=== PATIENT | female | born 1950 | race Caucasian/White ===

== ENCOUNTER 2016-06-11 15:28 | Emergency (ER) | payer OTHER ==
[~2016-06-11] VITALS: Ht 157.5 cm; Wt 120.0 kg
[~2016-06-11 15:28] MED LIST: CHOL100043 PO; CLON0.1T14 PO; EPIN0.3P2 IJ; IBUP200C PO; PALI156D IM; TRAZ-115 PO; Therapeutic Multivit/Minerals PO; VENL75CA PO; VIT1TABL83 PO; VITA400C64 PO
[2016-06-11 15:31] VITALS: BP 159/86; PULSE 92; RESP 18; O2SAT 98
--- NOTE | 2016-06-11 15:37 | ED.REPORT ---
HPI-Extremity Problem Upper Date of Service Jun 11, 2016 ED Provider: Matty Kang MD Patient is a 65 year old female who presents to the ED with a laceration of her left index finger after she accidentally cut herself with a rotary operator prior to arrival. The patient was quilting and using the rotary operator to cut fabric, accidentally slicing her finger instead. The patient is unable to stop the bleeding on her own and brought in pieces of tissue that she cut off. She is not on any blood thinning medications. Patient does not remember when her last Tetanus immunization was. She is right hand dominant and she did not sustain any other injuries. Nursing Notes Stated Complaint: LEFT INDEX FINGER LACERATION Chief Complaint: Laceration Nursing Notes Reviewed: Yes Allergies: Coded Allergies: Pistachio (Verified Allergy, Severe, Hives, 06/11/16) hydrocodone bitartrate (Verified Allergy, Severe, 06/11/16) omeprazole (Verified Adverse Reaction, Severe, OK WITH PANTOPRAZOLE, ) losartan potassium (Verified Adverse Reaction, Intermediate, Dizziness, 04/17) Scheduled ([Therapeutic Multivit/Minerals]) 1 TABLET TABLET 1 TABLET PO DAILY Cholecalciferol (Vitamin D3) (Vitamin D) 1,000 Unit Tablet 2,000 UNIT PO DAILY Clonidine (Catapres) 0.1 Mg Tablet 0.3 MG PO DAILY Paliperidone Palmitate Inj (Invega Sustenna) 156 Mg/1 Ml Syringe 156 MG IM every month Trazodone (Trazodone) 50 Mg Tablet 100 MG PO HS Venlafaxine ER (Effexor XR) 75 Mg Capsule 225 MG PO DAILYWM Vit B Comp/C/FA/Iron/Vit E (Vitamin B Complex Tablet) 1 Each Tablet 1 EACH PO DAILY Vitamin E Mixed (Vitamin E) 400 Unit Capsule 400 UNIT PO DAILY Scheduled PRN Epinephrine (Epipen 2-Luis) 0.3 Mg/0.3 Ml Auto.injct 0.3 MG IJ PRN anaphylaxis Ibuprofen (Ibuprofen) 200 Mg Capsule 400 MG PO Q6 PRN PRN For Pain Oxycodone HCl/Acetaminophen 5-325 (Endocet 5-325) 1 Each Tablet 1 TABLET PO Q4H PRN PRN For Pain General Time Seen by MD: 15:36 Chief Complaint Finger injury left 2 Hx Obtained From: Patient Arrived By: Walk-in Onset Occurred: Just prior to arrival Symptom Duration: Since onset Caused by: Accidental Context: Occurred at: Home injury Location: : Finger left 2 Quality: Painful Severity: Current: Moderate Severity: Maximum: Moderate Immunizations: Tetanus not up to date Recent Healthcare: No recent doctor visit, No recent hospitalization Similar Sx Previous: No Past Medical History Past Medical History UTI's GERD anxiety depression gastric ulcer bipolar disorder with history of psychosis prior psychiatric hospital admissions Reports: Hyperlipidemia, Hypertension Past Surgical History breast implants left leg fx right heel fx Reports: , Tonsillectomy Family History Reports: Hypertension Smoking History Current Every Day Smoker, Heavy Tobacco Smoker Social History Alcohol Use: 1-3 per day Other Social History: Lives alone, Local resident Ambulatory Status Independent Review of Systems Musculoskeletal: Reports: Extremity pain, Denies: Extremity swelling Complete sys rev & neg: except as marked. Hematologic: Reports Bleeding, Denies Bruising Physical Exam Initial Vital Signs Vital Signs (First) Date Time Temp Pulse Resp B/P Pulse Ox O2 Delivery O2 Flow Rate FiO2 06/11/16 15:31 36.5 92 18 159/86 98 Room Air Initial VS: Reviewed Head / Eyes: Atraumatic, Normocephalic, PERRL ENT: Conjunctiva normal, No scleral icterus Neck: Supple, Full range of motion Skin: Warm, Dry Neurologic: Alert, Oriented, Nonfocal Psychiatric: Mood/affect normal, Behavior normal, Normal thought content General/Constitutional: Awake, Alert, No acute distress Respiratory / Chest: No respiratory distress Cardiovascular: Heart rate NL, Peripheral circulation NL Upper Extremity / MS: Vascular intact Wrist / Hand: Vascular intact Finger Exam : Finger Exam: Positive: Amputation... (Finger tip), Finger name... (L index) oblique finger tip amputation extending from the midline of the tip of the left index finger radially, involves half of the nail bed and has active arterial bleeding. no exposed bone seen. 1x2cm supeficial avulsion to the radial aspect of the tip of the long finger left hand. Interpretation & Diagnostics X-Ray Interpretation Xray Interpretation: IMPRESSION: No fracture or foreign body material found that there is soft tissue distortion consistent with the clinical history of partial amputation second digit distally. Dictated by: Wali Dawn M.D. on 06/11/2016 at 16:28 Approved by: Wali Dawn M.D. on 06/11/2016 at 16:28 Study Performed: XR FINGERS LEFT Interpretation / Wet Read by: Interpret - Radiologist Procedures Laceration Management Laceration Management: Partial amputation site was irrigated, with a Gel Foam pressure dressing applied. Bleeding is controlled. Time: 16:49 Procedure Performed by: ED physician (assisted by ED Medical Student) Consent / Setup / Site Prep: Consent from patient, Time-out performed, Hand hygiene observed, Stand sterile technique Location of Wound: left index finger Local Anesthesia: Lidocaine w epi 1% Digital Block: Yes Digit Involved: Index finger left Irrigation: Copious Foreign Body Explore / Removal: Explored for foreign body Post-Procedure / Complications: Antibiotic oint applied, Dressing applied, No complications, Condition improved, Tolerated procedure well, Patient stable Re-Eval/Medical Decision Med Decision/Clinical Course Avulsion of radial aspect of L index finger. Had considerable bleeding. discussed tacking avulsed tissue back on vs dressing with gelfoam. We dressed with gelfoam an a pressure dressing. Will return in 2 days for wound check and dressing change Source of Hx: Old records Re-Evaluation/Progress : Time of Eval: 16:49 Patient Status: Condition improved Re-Evaluation/Progress Note: Informed the patient of the x-ray results, with no acute process found. Wound was dressed. Patient understands and agrees with the plan to be discharged home. Discharge instructions and follow-up discussed. All questions were addressed. Return to the ED warnings given. Counseled Regarding: Diagnosis, Need for follow-up, When/why to return to ED Discharge & Departure Impression: Primary Impression: Amputation of finger tip Encounter type: initial encounter Qualified Code: S68.129A - Partial traumatic metacarpophalangeal amputation of unspecified finger, initial encounter Disposition: Home Discharge Condition All VS Reviewed: Yes Condition: Stable Patient Instructions: Finger Amputation (ED), Laceration (ED) Additional Instructions: Emergency department evaluation today included interview, examination, X-ray, and wound care. We would like you to return to the ED in 2 days for dressing change. Call Dr Georges's office tomorrow for a re-check next week. May use oxycodone/apap as needed for pain. Elevate L hand above level of heart when able. We gave a tetanus booster today- good for 5-10 years. Referrals: Cleveland Georges MD 5 to 6 Days Scribe Attestation Portions of this note were transcribed by Irena Corral. I, Dr. Kang personally performed the history, physical exam and medical decision-making; I reviewed and confirmed the accuracy of the information in the transcribed note. Signed by: Mitzy Henning, 06/11/2016 1743 copies to: Cleveland Georges MD, Donald L MD Jun 11, 2016 15:37 Irena Corral Jun 11, 2016 15:49
--- NOTE | 2016-06-11 16:30 | DRSVH ---
PROCEDURE: X-RAY FINGERS, TWO VIEWS INDICATIONS: l index finger partial amputation TECHNIQUE: AP hand, 2 views of the second finger(s) acquired. COMPARISON: None. FINDINGS: Bones: No fractures or dislocations. No suspicious bony lesions. Soft tissues: No suspicious soft tissue calcifications. There is prominent soft tissue distortion i nvolving the distal phalanx of the second digit, reportedly a manifestation of traumatic injury. IMPRESSION: No fracture or foreign body material found that there is soft tissue distortion consisten t with the clinical history of partial amputation second digit distally. Dictated by: Wali Dawn M.D. on 06/11/2016 at 16:28 Approved by: Wali Dawn M.D. on 06/11/2016 at 16:28
[2016-06-11] MEDS ORDERED: Gelatin Sponge 12-7 MM TOPICAL ONE (16:55)
[2016-06-11] MEDS ORDERED: Td Adult-Tetanus/Diph Tox Abs 0.5 mL Inj IM ONE (17:15)
[2016-06-11] MEDS ORDERED: TdaP Vaccine 0.5 mL Inj IM ONE (17:40)
[2016-06-11] MEDS ORDERED: OXYC-407 PO (17:41)
== END 2016-06-11 17:50 | disposition home or self-care (01) ==
LOC: SED 15:28
DX: S68.121A Partial traumatic metacarpophalangeal amputation of left index finger, initial encounter (principal); W27.8XXA Contact with other nonpowered hand tool, initial encounter; Y93.D1 Activity, knitting and crocheting; Y92.009 Unspecified place in unspecified non-institutional (private) residence as the place of occurrence of the external cause; Y99.8 Other external cause status; Z23 Encounter for immunization; K21.9 Gastro-esophageal reflux disease without esophagitis; I10 Essential (primary) hypertension; E78.5 Hyperlipidemia, unspecified; F17.200 Nicotine dependence, unspecified, uncomplicated; Z88.5 Allergy status to narcotic agent; Z88.8 Allergy status to other drugs, medicaments and biological substances